=== PATIENT | male | born 1955 | race Caucasian/White ===

== ENCOUNTER 2023-07-06 21:28 | Emergency (ER) | payer BC, MEDICARE ==
[~2023-07-06] VITALS: Ht 175.3 cm; Wt 90.7 kg
[2023-07-06 21:46] VITALS: BP 144/84
[2023-07-06] MEDS ORDERED: OMEP20ER PO (21:48)
[2023-07-06] MEDS ORDERED: PRAVASTATIN SOD10 MG (21:49)
== END 2023-07-06 22:07 | disposition home or self-care (01) ==
LOC: ER 21:28
DX: S61.215A Laceration without foreign body of left ring finger without damage to nail, initial encounter (principal); S60.413A Abrasion of left middle finger, initial encounter; S60.417A Abrasion of left little finger, initial encounter; W26.8XXA Contact with other sharp object(s), not elsewhere classified, initial encounter; Y92.39 Other specified sports and athletic area as the place of occurrence of the external cause
CPT/HCPCS: 99283